=== PATIENT | female | born 1950 | race Caucasian/White ===

== ENCOUNTER 2020-06-21 07:57 | Observation (INO) | payer MEDICARE, OTHER ==
[2020-06-20 11:15] LABS: COVID AG,FIA SOURCE NASOPHARYNGEAL
[2020-06-20 11:32] LABS: PROTHROMBIN TIME 10.3 SEC (9.4-11.6)
[2020-06-20 11:34] LABS: BASOPHILS % (AUTO) 2.8 % (0.0-2.0); EOSINOPHILS % (AUTO) 3.5 % (1.0-6.0); HEMATOCRIT 42.6 % (36-46); HEMOGLOBIN 14.2 g/dL (12.0-16.0); LYMPHOCYTES # (AUTO) 1.4 K/uL (1.0-4.8); MEAN CORPUSCULAR HEMOGLOBIN 30.1 pg (26.0-34.0); MEAN CORPUSCULAR HGB CONC 33.4 G/dL (31.0-37.0); MEAN CORPUSCULAR VOLUME 90 fL (80-100); MONOCYTES # (AUTO) 0.5 K/uL (0.1-1.0); MONOCYTES % (AUTO) 10.9 % (2.0-9.0); NEUTROPHILS # (AUTO) 2.3 K/uL (1.8-7.7); NEUTROPHILS % (AUTO) 50.8 % (40.0-70.0); PLATELET COUNT (AUTO) 150 K/uL (150-450); RED BLOOD CELL COUNT(AUTO) 4.73 MIL/uL (4.00-5.20); RED CELL DISTRIBUTION WIDTH 14.1 % (11.5-14.5)
[2020-06-20 11:42] LABS: ANION GAP 3 mmol/L (8-16); CALCIUM, TOTAL 9.8 mg/dL (8.8-10.5); CARBON DIOXIDE 32 mmol/L (22-29); CHLORIDE 109 mmol/L (98-107); CREATININE 0.82 mg/dL (0.60-1.30); GLOMERULAR FILTR. RATE CALC > 60 mL/min (>60); GLUCOSE,RANDOM 103 mg/dL (70-110); POTASSIUM 4.1 mmol/L (3.5-5.1); SODIUM SERUM 144 mmol/L (136-145); UREA NITROGEN, BLOOD 12 mg/dL (7-18)
[2020-06-20 11:56] LABS: ALANINE AMINOTRANSFERASE 34 U/L (12-78); ALBUMIN 3.6 g/dL (3.4-5.0); ALKALINE PHOSPHATASE 44 U/L (46-116); ASPARTATE AMINOTRANSFERASE 20 U/L (15-37); BILIRUBIN,TOTAL 0.7 mg/dL (0.1-1.0); TOTAL PROTEIN, SERUM 7.3 g/dL (6.4-8.2)
[2020-06-21] VITALS (12 sets, daily range): BP systolic 120–160; BP diastolic 73–87
[~2020-06-21 07:57] MED LIST: ASPI-728 PO; CALC-910 PO; LOSA25TA21 PO; MECL25TA31 PO; NAPR-1193 PO; OMEG-50 PO
[2020-06-21] MEDS ORDERED: SODIUM CHLORIDE 0.9% 1,000 ML ONE (08:11)
[2020-06-21] MEDS ORDERED: SODIUM CHLORIDE 0.9% 1,000 ML IV ONE (08:30)
[2020-06-21] MEDS ORDERED: NITROGLYCERIN 50 MG/D5% WATER 250 ML ONE (09:34)
[2020-06-21] MEDS ORDERED: SODIUM BICARBONATE 50 MEQ/50 ML VIAL ONE (09:34)
[2020-06-21] MEDS ORDERED: LIDOCAINE/PF 1% 30 ML VIAL ONE (09:34)
[2020-06-21] MEDS ORDERED: VERAPAMIL HCL 2.5 MG/ML 2 ML VIAL ONE (09:34)
[2020-06-21] MEDS ORDERED: FentaNYL CITRATE-PF 100 MCG/2 ML VIAL ONE (09:34)
[2020-06-21] MEDS ORDERED: IOHEXOL 300 MG/ML 150 ML VIAL ONE (09:34)
[2020-06-21] MEDS ORDERED: MIDAZOLAM HCL 2 MG/2 ML VIAL ONE (09:34)
[2020-06-21] MEDS ORDERED: HEPARIN SODIUM 1000 UNITS/NS 1,000 ML ONE (09:35)
[2020-06-21] MEDS ORDERED: IOHEXOL 300 MG/ML 50 ML VIAL ONE (11:00)
[2020-06-21] MEDS ORDERED: HEPARIN SODIUM 1000 UNITS/NS 500 ML ONE (11:01)
[2020-06-21] MEDS ORDERED: HEPARIN SODIUM 1000 UNITS/NS 1,000 ML IARTER ONE (11:01)
[2020-06-21] MEDS ORDERED: MIDAZOLAM HCL 2 MG/2 ML VIAL IVP ONE (11:15)
[2020-06-21] MEDS ORDERED: IOHEXOL 300 MG/ML 100 ML VIAL ONE (11:15)
[2020-06-21] MEDS ORDERED: LIDOCAINE 1% 30 ML/SOD BICARB 8.4% 4 ML SQ ONE (11:15)
[2020-06-21] MEDS ORDERED: HEPARIN SODIUM,PORCINE 5,000 UNITS/ML VIAL IVP ONE (11:15)
[2020-06-21] MEDS ORDERED: IOHEXOL 300 MG/ML 150 ML VIAL IARTER ONE (11:15)
[2020-06-21] MEDS ORDERED: FentaNYL CITRATE-PF 100 MCG/2 ML VIAL IVP ONE ×2 (11:15→11:30)
[2020-06-21] MEDS ORDERED: NITROGLYCERIN/D5W 50 MG/250 ML IV BOTTLE ICOR ONE ×2 (11:30→11:45)
[2020-06-21] MEDS ORDERED: SODIUM CHLORIDE 0.9% 500 ML IV ONE (12:00)
[2020-06-21] MEDS ORDERED: CLOPIDOGREL BISULFATE 300 MG TABLET ONE (12:11)
[2020-06-21] MEDS ORDERED: ASPIRIN 325 MG TABLET ONE (12:11)
[2020-06-21] MEDS ORDERED: ACETAMINOPHEN 325 MG TABLET PO PRN (12:15)
[2020-06-21] MEDS ORDERED: HYDROCODONE/ACETAMINOPHEN 5-325 MG TABLET PO PRN (12:15)
[2020-06-21] MEDS ORDERED: ASPIRIN 325 MG TABLET PO ONE (12:15)
[2020-06-21] MEDS ORDERED: MORPHINE SULFATE 2 MG/ML SYRINGE IM PRN (12:15)
[2020-06-21] MEDS ORDERED: CLOPIDOGREL BISULFATE 300 MG TABLET PO ONE (12:15)
[2020-06-21] MEDS: METOPROLOL SUCCINATE 25 MG ER TABLET PO SCH (13:49)
[2020-06-21] MEDS: NITROGLYCERIN 2% (1 GM=INCH) PACKET TP SCH ×2 (13:49→18:25)
[2020-06-21] MEDS: LOSARTAN POTASSIUM 25 MG TABLET PO SCH (14:00)
[2020-06-21] MEDS ORDERED: MAG HYDROX/AL HYDROX/SIMETH 30 ML SUSP UDCUP PO PRN (15:15)
[2020-06-22 04:26] VITALS: BP 148/92
[2020-06-22 07:16] VITALS: BP 145/90
[2020-06-22] MEDS: METOPROLOL SUCCINATE 25 MG ER TABLET PO SCH (08:35)
[2020-06-22] MEDS: LOSARTAN POTASSIUM 25 MG TABLET PO SCH (08:36)
[2020-06-22] MEDS ORDERED: ENOXAPARIN SODIUM 40 MG/0.4 ML PF SYRINGE SQ SCH (09:00)
[2020-06-22] MEDS ORDERED: CLOPIDOGREL BISULFATE 75 MG TABLET PO SCH (09:00)
[2020-06-22] MEDS ORDERED: PANTOPRAZOLE SODIUM 40 MG DR TABLET PO SCH (09:00)
[2020-06-22] MEDS ORDERED: ASPIRIN 325 MG EC TABLET PO SCH (09:00)
[2020-06-22 09:02] LABS: BASOPHILS % (AUTO) 0.8 % (0.0-2.0); EOSINOPHILS % (AUTO) 3.1 % (1.0-6.0); HEMATOCRIT 41.7 % (36-46); HEMOGLOBIN 14.1 g/dL (12.0-16.0); LYMPHOCYTES # (AUTO) 1.6 K/uL (1.0-4.8); LYMPHOCYTES % (AUTO) 26.5 % (22.0-44.0); MEAN CORPUSCULAR HEMOGLOBIN 30.7 pg (26.0-34.0); MEAN CORPUSCULAR HGB CONC 33.9 G/dL (31.0-37.0); MEAN CORPUSCULAR VOLUME 91 fL (80-100); MONOCYTES # (AUTO) 0.5 K/uL (0.1-1.0); MONOCYTES % (AUTO) 7.7 % (2.0-9.0); NEUTROPHILS # (AUTO) 3.7 K/uL (1.8-7.7); NEUTROPHILS % (AUTO) 61.9 % (40.0-70.0); PLATELET COUNT (AUTO) 144 K/uL (150-450); RED CELL DISTRIBUTION WIDTH 13.9 % (11.5-14.5)
[2020-06-22 09:37] LABS: ANION GAP 6 mmol/L (8-16); CALCIUM, TOTAL 8.7 mg/dL (8.8-10.5); CARBON DIOXIDE 29 mmol/L (22-29); CHLORIDE 108 mmol/L (98-107); CHOL/HDL RATIO 3.6 (3.9-5.7); CHOLESTEROL 189 mg/dL (131-200); CREATINE KINASE, TOTAL ONLY 213 U/L (26-192); CREATININE 0.69 mg/dL (0.60-1.30); GLOMERULAR FILTR. RATE CALC > 60 mL/min (>60); GLUCOSE,RANDOM 156 mg/dL (70-110); HDL CHOLESTEROL 53 mg/dL (40-60); LDL CHOL (CALC.) 114 mg/dL (0-130); POTASSIUM 4.1 mmol/L (3.5-5.1); SODIUM SERUM 143 mmol/L (136-145); TRIGLYCERIDES 112 mg/dL (15-150); UREA NITROGEN, BLOOD 13 mg/dL (7-18)
[2020-06-22] MEDS ORDERED: ATOR40TA28 PO (10:12)
[2020-06-22] MEDS ORDERED: ASPI-728 PO (10:13)
[2020-06-22] MEDS ORDERED: METO25XL PO (10:13)
[2020-06-22] MEDS ORDERED: CLOP-31 PO (10:13)
[2020-06-22 10:30] VITALS: BP 138/80
== END 2020-06-22 11:48 | disposition home or self-care (01) ==
LOC: CATHLAB 07:57 → INTOOBSV 07:58 → 5S 07:58 → UNDOADMIN 12:30 → 5S 12:30
PROVIDERS: ADMIT Internal Medicine Cardiovascular Disease; ATTEND Internal Medicine Cardiovascular Disease
DX: I25.119 Atherosclerotic heart disease of native coronary artery with unspecified angina pectoris (principal); I10 Essential (primary) hypertension; E78.5 Hyperlipidemia, unspecified; M19.90 Unspecified osteoarthritis, unspecified site; Z95.5 Presence of coronary angioplasty implant and graft; Z85.3 Personal history of malignant neoplasm of breast
CPT/HCPCS: 36415 ×2; 80048; 80053; 80061; 82550; 85025 ×2; 85610; 85730; 87426; 92920; 92928; 93005 ×2; 93458; 96361; 96372; 96374; 96375; 96376; 99219; C1760; C1769; C1874; C1887; J1644; J1650; J2250; J3010; J3490 ×3; J7030; Q9967 ×3